=== PATIENT | female | born 1965 | race Caucasian/White ===

== ENCOUNTER 2022-09-15 09:53 | Outpatient (CLI) | payer SELFPAY, OTHER | END 2022-09-15 09:54 | disposition home or self-care (01) | LOC: CSHWCC 09:53 | PROVIDERS: ATTEND Nurse Practitioner Family | DX: E11.621 Type 2 diabetes mellitus with foot ulcer (principal); L97.522 Non-pressure chronic ulcer of other part of left foot with fat layer exposed; L97.422 Non-pressure chronic ulcer of left heel and midfoot with fat layer exposed; R60.0 Localized edema | CPT/HCPCS: 97605 ==

== ENCOUNTER 2022-09-19 08:16 | Outpatient (CLI) | payer SELFPAY, OTHER | END 2022-09-19 08:17 | disposition home or self-care (01) | LOC: CSHWCC 08:16 | PROVIDERS: ATTEND Nurse Practitioner Family | DX: E11.621 Type 2 diabetes mellitus with foot ulcer (principal); L97.422 Non-pressure chronic ulcer of left heel and midfoot with fat layer exposed; L97.522 Non-pressure chronic ulcer of other part of left foot with fat layer exposed; R60.0 Localized edema | CPT/HCPCS: 97605 ==

== ENCOUNTER 2022-09-27 08:09 | Outpatient (CLI) | payer SELFPAY, OTHER | END 2022-09-27 08:10 | disposition home or self-care (01) | LOC: CSHWCC 08:09 | PROVIDERS: ATTEND Nurse Practitioner Family | DX: E11.621 Type 2 diabetes mellitus with foot ulcer (principal); L97.422 Non-pressure chronic ulcer of left heel and midfoot with fat layer exposed; R60.0 Localized edema | CPT/HCPCS: 97605; 99213; G0463 ==

== ENCOUNTER 2022-09-30 08:38 | Outpatient (CLI) | payer SELFPAY, OTHER | END 2022-09-30 08:39 | disposition home or self-care (01) | LOC: CSHWCC 08:38 | PROVIDERS: ATTEND Nurse Practitioner Family | DX: E11.621 Type 2 diabetes mellitus with foot ulcer (principal); L97.422 Non-pressure chronic ulcer of left heel and midfoot with fat layer exposed; R60.0 Localized edema | CPT/HCPCS: 97605; 99212; G0463 ==

== ENCOUNTER 2022-10-04 08:19 | Outpatient (CLI) | payer SELFPAY, OTHER | END 2022-10-04 08:20 | disposition home or self-care (01) | LOC: CSHWCC 08:19 | PROVIDERS: ATTEND Nurse Practitioner Family | DX: E11.621 Type 2 diabetes mellitus with foot ulcer (principal); L97.422 Non-pressure chronic ulcer of left heel and midfoot with fat layer exposed; R60.0 Localized edema | CPT/HCPCS: 97605 ==

== ENCOUNTER 2022-10-10 08:09 | Outpatient (CLI) | payer SELFPAY | END 2022-10-10 08:10 | disposition home or self-care (01) | LOC: CSHWCC 08:09 | PROVIDERS: ATTEND Nurse Practitioner Family | DX: E11.621 Type 2 diabetes mellitus with foot ulcer (principal); L97.422 Non-pressure chronic ulcer of left heel and midfoot with fat layer exposed; L97.522 Non-pressure chronic ulcer of other part of left foot with fat layer exposed; R60.0 Localized edema ==

== ENCOUNTER 2022-10-17 08:16 | Outpatient (CLI) | payer SELFPAY | END 2022-10-17 08:17 | disposition home or self-care (01) | LOC: CSHWCC 08:16 | PROVIDERS: ATTEND Nurse Practitioner Family | DX: E11.621 Type 2 diabetes mellitus with foot ulcer (principal); L97.422 Non-pressure chronic ulcer of left heel and midfoot with fat layer exposed; R60.0 Localized edema | CPT/HCPCS: 11042 ==

== ENCOUNTER 2022-10-24 08:07 | Outpatient (CLI) | payer SELFPAY | END 2022-10-24 08:08 | disposition home or self-care (01) | LOC: CSHWCC 08:07 | PROVIDERS: ATTEND Nurse Practitioner Family | DX: E11.621 Type 2 diabetes mellitus with foot ulcer (principal); L97.422 Non-pressure chronic ulcer of left heel and midfoot with fat layer exposed; R60.0 Localized edema | CPT/HCPCS: 11042 ==

== ENCOUNTER 2022-10-31 08:04 | Outpatient (CLI) | payer SELFPAY | END 2022-10-31 08:05 | disposition home or self-care (01) | LOC: CSHWCC 08:04 | PROVIDERS: ATTEND Nurse Practitioner Family | DX: E11.621 Type 2 diabetes mellitus with foot ulcer (principal); L97.422 Non-pressure chronic ulcer of left heel and midfoot with fat layer exposed | CPT/HCPCS: 11042 ==

== ENCOUNTER 2022-11-07 08:09 | Outpatient (CLI) | payer SELFPAY | END 2022-11-07 08:10 | disposition home or self-care (01) | LOC: CSHWCC 08:09 | PROVIDERS: ATTEND Nurse Practitioner Family | DX: E11.621 Type 2 diabetes mellitus with foot ulcer (principal); L97.422 Non-pressure chronic ulcer of left heel and midfoot with fat layer exposed | CPT/HCPCS: 11042 ==

== ENCOUNTER 2022-11-14 08:30 | Outpatient (CLI) | payer SELFPAY | END 2022-11-14 08:31 | disposition home or self-care (01) | LOC: CSHWCC 08:30 | PROVIDERS: ATTEND Nurse Practitioner Family | DX: E11.621 Type 2 diabetes mellitus with foot ulcer (principal); L97.422 Non-pressure chronic ulcer of left heel and midfoot with fat layer exposed | CPT/HCPCS: 11042 ==

== ENCOUNTER 2022-11-21 08:01 | Outpatient (CLI) | payer SELFPAY | END 2022-11-21 08:02 | disposition home or self-care (01) | LOC: CSHWCC 08:01 | PROVIDERS: ATTEND Nurse Practitioner Family | DX: E11.621 Type 2 diabetes mellitus with foot ulcer (principal); L97.422 Non-pressure chronic ulcer of left heel and midfoot with fat layer exposed | CPT/HCPCS: 11042 ==

== ENCOUNTER 2022-11-28 08:08 | Outpatient (CLI) | payer SELFPAY | END 2022-11-28 08:09 | disposition home or self-care (01) | LOC: CSHWCC 08:08 | PROVIDERS: ATTEND Nurse Practitioner Family | DX: E11.621 Type 2 diabetes mellitus with foot ulcer (principal); L97.422 Non-pressure chronic ulcer of left heel and midfoot with fat layer exposed | CPT/HCPCS: 11042 ==

== ENCOUNTER 2022-12-12 08:05 | Outpatient (CLI) | payer SELFPAY | END 2022-12-12 08:06 | disposition home or self-care (01) | LOC: CSHWCC 08:05 | PROVIDERS: ATTEND Nurse Practitioner Family | DX: E11.621 Type 2 diabetes mellitus with foot ulcer (principal); L97.422 Non-pressure chronic ulcer of left heel and midfoot with fat layer exposed | CPT/HCPCS: 11042 ==

== ENCOUNTER 2022-12-27 13:32 | Outpatient (CLI) | payer SELFPAY | END 2022-12-27 13:33 | disposition home or self-care (01) | LOC: CSHWCC 13:32 | PROVIDERS: ATTEND Nurse Practitioner Family | DX: E11.621 Type 2 diabetes mellitus with foot ulcer (principal); L97.422 Non-pressure chronic ulcer of left heel and midfoot with fat layer exposed ==

== ENCOUNTER 2023-01-18 08:09 | Outpatient (CLI) | payer SELFPAY | END 2023-01-18 08:10 | disposition home or self-care (01) | LOC: CSHWCC 08:09 | PROVIDERS: ATTEND Nurse Practitioner Family | DX: T81.89XD Other complications of procedures, not elsewhere classified, subsequent encounter (principal); R60.0 Localized edema ==

== ENCOUNTER 2023-01-20 08:30 | Outpatient (CLI) | payer SELFPAY | END 2023-01-20 08:31 | disposition home or self-care (01) | LOC: CSHWCC 08:30 | PROVIDERS: ATTEND Nurse Practitioner Family | DX: T81.89XD Other complications of procedures, not elsewhere classified, subsequent encounter (principal); R60.0 Localized edema ==

== ENCOUNTER 2023-01-23 09:21 | Outpatient (CLI) | payer SELFPAY | END 2023-01-23 09:22 | disposition home or self-care (01) | LOC: CSHWCC 09:21 | PROVIDERS: ATTEND Nurse Practitioner Family | DX: T81.89XD Other complications of procedures, not elsewhere classified, subsequent encounter (principal); R60.0 Localized edema ==

== ENCOUNTER 2023-01-26 08:06 | Outpatient (CLI) | payer SELFPAY | END 2023-01-26 08:07 | disposition home or self-care (01) | LOC: CSHWCC 08:06 | PROVIDERS: ATTEND Nurse Practitioner Family | DX: T81.89XD Other complications of procedures, not elsewhere classified, subsequent encounter (principal); R60.9 Edema, unspecified | CPT/HCPCS: 97605 ==

== ENCOUNTER 2023-01-30 08:08 | Outpatient (CLI) | payer SELFPAY | END 2023-01-30 08:09 | disposition home or self-care (01) | LOC: CSHWCC 08:08 | PROVIDERS: ATTEND Nurse Practitioner Family | DX: T81.89XD Other complications of procedures, not elsewhere classified, subsequent encounter (principal); R60.0 Localized edema ==

== ENCOUNTER 2023-02-02 08:12 | Outpatient (CLI) | payer SELFPAY | END 2023-02-02 08:13 | disposition home or self-care (01) | LOC: CSHWCC 08:12 | PROVIDERS: ATTEND Nurse Practitioner Family | DX: T81.89XD Other complications of procedures, not elsewhere classified, subsequent encounter (principal); R60.0 Localized edema ==

== ENCOUNTER 2023-02-06 08:50 | Outpatient (CLI) | payer SELFPAY | END 2023-02-06 08:51 | disposition home or self-care (01) | LOC: CSHWCC 08:50 | PROVIDERS: ATTEND Nurse Practitioner Family | DX: T81.89XD Other complications of procedures, not elsewhere classified, subsequent encounter (principal); R60.0 Localized edema | CPT/HCPCS: 11043; 97605 ==

== ENCOUNTER 2023-02-09 08:05 | Outpatient (CLI) | payer SELFPAY | END 2023-02-09 08:06 | disposition home or self-care (01) | LOC: CSHWCC 08:05 | PROVIDERS: ATTEND Nurse Practitioner Family | DX: R60.9 Edema, unspecified (principal); T81.89XD Other complications of procedures, not elsewhere classified, subsequent encounter | CPT/HCPCS: 97605 ==

== ENCOUNTER 2023-03-09 08:04 | Outpatient (CLI) | payer SELFPAY | END 2023-03-09 08:05 | disposition home or self-care (01) | LOC: CSHWCC 08:04 | PROVIDERS: ATTEND Nurse Practitioner Family | DX: T81.89XD Other complications of procedures, not elsewhere classified, subsequent encounter (principal); R60.0 Localized edema | CPT/HCPCS: 29581 ==

== ENCOUNTER 2023-03-27 10:00 | Outpatient (CLI) | payer SELFPAY | END 2023-03-27 10:01 | disposition home or self-care (01) | LOC: CSHWCC 10:00 | PROVIDERS: ATTEND Nurse Practitioner Family | DX: T81.89XD Other complications of procedures, not elsewhere classified, subsequent encounter (principal); R60.0 Localized edema | CPT/HCPCS: 29581; 97597 ==

== ENCOUNTER 2023-03-29 08:08 | Outpatient (CLI) | payer SELFPAY | END 2023-03-29 08:09 | disposition home or self-care (01) | LOC: CSHWCC 08:08 | PROVIDERS: ATTEND Nurse Practitioner Family | DX: R60.0 Localized edema (principal); T81.89XD Other complications of procedures, not elsewhere classified, subsequent encounter | CPT/HCPCS: 29581; 97597 ==

== ENCOUNTER 2023-04-03 08:03 | Outpatient (CLI) | payer SELFPAY | END 2023-04-03 08:04 | disposition home or self-care (01) | LOC: CSHWCC 08:03 | PROVIDERS: ATTEND Nurse Practitioner Family | DX: T81.89XD Other complications of procedures, not elsewhere classified, subsequent encounter (principal); R60.0 Localized edema | CPT/HCPCS: 29581 ==

== ENCOUNTER 2023-04-05 10:05 | Outpatient (CLI) | payer SELFPAY | END 2023-04-05 10:06 | disposition home or self-care (01) | LOC: CSHWCC 10:05 | PROVIDERS: ATTEND Nurse Practitioner Family | DX: T81.89XD Other complications of procedures, not elsewhere classified, subsequent encounter (principal); R60.0 Localized edema | CPT/HCPCS: 11042; 29581 ==

== ENCOUNTER 2023-04-10 08:04 | Outpatient (CLI) | payer SELFPAY | END 2023-04-10 08:05 | disposition home or self-care (01) | LOC: CSHWCC 08:04 | PROVIDERS: ATTEND Nurse Practitioner Family | DX: R60.9 Edema, unspecified (principal); T81.89XD Other complications of procedures, not elsewhere classified, subsequent encounter | CPT/HCPCS: 29581; 97597 ==

== ENCOUNTER 2023-04-12 08:20 | Outpatient (CLI) | payer SELFPAY | END 2023-04-12 08:21 | disposition home or self-care (01) | LOC: CSHWCC 08:20 | PROVIDERS: ATTEND Nurse Practitioner Family | DX: R60.9 Edema, unspecified (principal); T81.89XD Other complications of procedures, not elsewhere classified, subsequent encounter | CPT/HCPCS: 29581; 99211; G0463 ==

== ENCOUNTER 2023-04-14 08:32 | Outpatient (CLI) | payer SELFPAY | END 2023-04-14 08:33 | disposition home or self-care (01) | LOC: CSHWCC 08:32 | PROVIDERS: ATTEND Nurse Practitioner Family | DX: T81.89XD Other complications of procedures, not elsewhere classified, subsequent encounter (principal); R60.0 Localized edema | CPT/HCPCS: 29581 ==

== ENCOUNTER 2023-04-19 08:05 | Outpatient (CLI) | payer SELFPAY | END 2023-04-19 08:06 | disposition home or self-care (01) | LOC: CSHWCC 08:05 | PROVIDERS: ATTEND Nurse Practitioner Family | DX: T81.89XD Other complications of procedures, not elsewhere classified, subsequent encounter (principal); R60.0 Localized edema | CPT/HCPCS: 11042; 29581 ==

== ENCOUNTER 2023-04-24 08:05 | Outpatient (CLI) | payer SELFPAY | END 2023-04-24 08:06 | disposition home or self-care (01) | LOC: CSHWCC 08:05 | PROVIDERS: ATTEND Nurse Practitioner Family | DX: T81.89XD Other complications of procedures, not elsewhere classified, subsequent encounter (principal); R60.0 Localized edema | CPT/HCPCS: 11042; 29581 ==

== ENCOUNTER 2023-05-01 08:13 | Outpatient (CLI) | payer SELFPAY | END 2023-05-01 08:14 | disposition home or self-care (01) | LOC: CSHWCC 08:13 | PROVIDERS: ATTEND Nurse Practitioner Family | DX: T81.89XD Other complications of procedures, not elsewhere classified, subsequent encounter (principal); R60.0 Localized edema | CPT/HCPCS: 11042; 29581 ==

== ENCOUNTER 2023-05-05 08:02 | Outpatient (CLI) | payer SELFPAY | END 2023-05-05 08:03 | disposition home or self-care (01) | LOC: CSHWCC 08:02 | PROVIDERS: ATTEND Nurse Practitioner Family | DX: T81.89XD Other complications of procedures, not elsewhere classified, subsequent encounter (principal); R60.0 Localized edema | CPT/HCPCS: 97597 ==

== ENCOUNTER 2023-05-08 08:11 | Outpatient (CLI) | payer SELFPAY | END 2023-05-08 08:12 | disposition home or self-care (01) | LOC: CSHWCC 08:11 | PROVIDERS: ATTEND Nurse Practitioner Family | DX: T81.89XD Other complications of procedures, not elsewhere classified, subsequent encounter (principal) | CPT/HCPCS: 29581 ==

== ENCOUNTER 2023-05-12 08:02 | Outpatient (CLI) | payer SELFPAY | END 2023-05-12 08:03 | disposition home or self-care (01) | LOC: CSHWCC 08:02 | PROVIDERS: ATTEND Nurse Practitioner Family | DX: T81.89XD Other complications of procedures, not elsewhere classified, subsequent encounter (principal); R60.0 Localized edema | CPT/HCPCS: 11042; 29581 ==

== ENCOUNTER 2023-05-15 08:09 | Outpatient (CLI) | payer SELFPAY | END 2023-05-15 08:10 | disposition home or self-care (01) | LOC: CSHWCC 08:09 | PROVIDERS: ATTEND Nurse Practitioner Family | DX: R60.9 Edema, unspecified (principal); T81.89XD Other complications of procedures, not elsewhere classified, subsequent encounter | CPT/HCPCS: 29581 ==

== ENCOUNTER 2023-05-18 08:02 | Outpatient (CLI) | payer SELFPAY | END 2023-05-18 08:03 | disposition home or self-care (01) | LOC: CSHWCC 08:02 | PROVIDERS: ATTEND Nurse Practitioner Family | DX: T81.89XD Other complications of procedures, not elsewhere classified, subsequent encounter (principal); R60.0 Localized edema | CPT/HCPCS: 99211; G0463 ==

== ENCOUNTER 2023-05-22 08:03 | Outpatient (CLI) | payer SELFPAY | END 2023-05-22 08:04 | disposition home or self-care (01) | LOC: CSHWCC 08:03 | PROVIDERS: ATTEND Nurse Practitioner Family | DX: T81.89XD Other complications of procedures, not elsewhere classified, subsequent encounter (principal); R60.0 Localized edema | CPT/HCPCS: 99211; G0463 ==

== ENCOUNTER 2023-05-26 08:13 | Outpatient (CLI) | payer SELFPAY | END 2023-05-26 08:14 | disposition home or self-care (01) | LOC: CSHWCC 08:13 | PROVIDERS: ATTEND Nurse Practitioner Family | DX: T81.89XD Other complications of procedures, not elsewhere classified, subsequent encounter (principal); R60.0 Localized edema | CPT/HCPCS: 11042 ==

== ENCOUNTER 2023-05-29 08:05 | Outpatient (CLI) | payer SELFPAY | END 2023-05-29 08:06 | disposition home or self-care (01) | LOC: CSHWCC 08:05 | PROVIDERS: ATTEND Nurse Practitioner Family | DX: T81.89XD Other complications of procedures, not elsewhere classified, subsequent encounter (principal); R60.0 Localized edema | CPT/HCPCS: 99212; G0463 ==

== ENCOUNTER 2023-06-02 08:02 | Outpatient (CLI) | payer SELFPAY | END 2023-06-02 08:03 | disposition home or self-care (01) | LOC: CSHWCC 08:02 | PROVIDERS: ATTEND Nurse Practitioner Family | DX: R60.9 Edema, unspecified (principal); T81.89XD Other complications of procedures, not elsewhere classified, subsequent encounter | CPT/HCPCS: 99211; G0463 ==

== ENCOUNTER 2023-06-06 08:03 | Outpatient (CLI) | payer SELFPAY | END 2023-06-06 08:04 | disposition home or self-care (01) | LOC: CSHWCC 08:03 | PROVIDERS: ATTEND Nurse Practitioner Family | DX: T81.89XD Other complications of procedures, not elsewhere classified, subsequent encounter (principal) | CPT/HCPCS: 99212; G0463 ==

== ENCOUNTER 2023-06-09 08:39 | Outpatient (CLI) | payer SELFPAY | END 2023-06-09 08:40 | disposition home or self-care (01) | LOC: CSHWCC 08:39 | PROVIDERS: ATTEND Nurse Practitioner Family | DX: T81.89XD Other complications of procedures, not elsewhere classified, subsequent encounter (principal); R60.0 Localized edema | CPT/HCPCS: 99213; G0463 ==

== ENCOUNTER 2023-06-12 08:09 | Outpatient (CLI) | payer SELFPAY | END 2023-06-12 08:10 | disposition home or self-care (01) | LOC: CSHWCC 08:09 | PROVIDERS: ATTEND Nurse Practitioner Family | DX: T81.89XD Other complications of procedures, not elsewhere classified, subsequent encounter (principal); R60.0 Localized edema | CPT/HCPCS: 97597 ==

== ENCOUNTER 2023-07-07 08:02 | Outpatient (CLI) | payer SELFPAY | END 2023-07-07 08:03 | disposition home or self-care (01) | LOC: CSHWCC 08:02 | PROVIDERS: ATTEND Physician Assistant | DX: T81.89XD Other complications of procedures, not elsewhere classified, subsequent encounter (principal) | CPT/HCPCS: 99211; G0463 ==

== ENCOUNTER 2023-07-14 08:01 | Outpatient (CLI) | payer SELFPAY | END 2023-07-14 08:02 | disposition home or self-care (01) | LOC: CSHWCC 08:01 | PROVIDERS: ATTEND Physician Assistant | DX: T81.89XD Other complications of procedures, not elsewhere classified, subsequent encounter (principal); R60.9 Edema, unspecified | CPT/HCPCS: 97602 ==

== ENCOUNTER 2023-07-21 08:11 | Outpatient (CLI) | payer SELFPAY | END 2023-07-21 08:12 | disposition home or self-care (01) | LOC: CSHWCC 08:11 | PROVIDERS: ATTEND Preventive Medicine Undersea and Hyperbaric Medicine | DX: T81.89XD Other complications of procedures, not elsewhere classified, subsequent encounter (principal); R60.9 Edema, unspecified | CPT/HCPCS: 99212; G0463 ==

== ENCOUNTER 2023-08-04 08:13 | Outpatient (CLI) | payer SELFPAY | END 2023-08-04 08:14 | disposition home or self-care (01) | LOC: CSHWCC 08:13 | PROVIDERS: ATTEND Physician Assistant | DX: E11.621 Type 2 diabetes mellitus with foot ulcer (principal); L97.509 Non-pressure chronic ulcer of other part of unspecified foot with unspecified severity | CPT/HCPCS: 99212; G0463 ==